=== PATIENT | female | born 2000 | race Two or more races ===

== ENCOUNTER 2023-08-10 18:41 | Emergency (ER) | payer MEDICAID, OTHER ==
[~2023-08-10] VITALS: Ht 160 cm; Wt 93.0 kg
[2023-08-10 20:13] LABS: Basophils # (auto) 0 10 ^3/uL (0-0.2); Basophils % (auto) 0.3 % (0.0-2.0); Eosinophils # (auto) 0.1 10 ^3/uL (0-0.8); Eosinophils % (auto) 1.1 % (0.0-7.0); Hemoglobin 13.3 g/dL (12.2-16.2); Lymphocytes % (auto) 26.6 % (10.0-50.0); Mean Corpuscular Hemoglobin 27.8 pg (28.0-32.0); Mean Corpuscular Hgb Conc. 33.2 g/dL (32.0-36.0); Mean Corpuscular Volume 83.8 fL (80.0-100.0); Monocytes # (auto) 0.8 10 ^3/uL (0-1.3); Monocytes % (auto) 6.8 % (0.0-12.0); Neutrophils # (auto) 7.4 10 ^3/uL (1.6-8.6); Neutrophils % (auto) 65.2 % (37.0-80.0); Red Blood Cells 4.77 10^6/uL (4.0-5.20); Red Cell Distribution Width 13.5 % (11.8-14.3); White Blood Cell 11.3 10^3/uL (4.4-10.8)
[2023-08-10 20:36] LABS: Alanine Aminotransferase 23 U/L (7-40); Albumin 4.5 g/dL (3.2-4.8); Alkaline Phosphatase 97 U/L (46-116); Anion Gap 6 (5-15); Aspartate Aminotransferase 16 U/L (13-40); BUN/Creatinine Ratio 11.1 (10.0-20.0); Bilirubin, Total 0.4 mg/dL (0.2-1.0); Blood Urea Nitrogen 7 mg/dL (9-23); Calcium 9.7 mg/dL (8.7-10.4); Carbon Dioxide 26 mmol/L (20-30); Chloride 104 mmol/L (98-107); Glucose 87 mg/dL (74-106); Sodium 136 mmol/L (136-145); Total Protein 7.7 g/dL (5.7-8.2)
[2023-08-10 22:44] LABS: Urine Bacteria NONE SEEN /hpf (None Seen); Urine Blood Negative /uL (Negative); Urine Clarity Clear (Clear); Urine Color Yellow (Yellow); Urine Mucus FEW (None Seen); Urine Protein, UAD TRACE (Negative); Urine Specific Gravity 1.026 (1.001-1.035); Urine Urobilinogen Normal (Negative); Urine WBC 1 /hpf (0 - 5)
[2023-08-10 23:46] VITALS: BP 129/78; PULSE 78; RESP 18; TEMP 98; O2SAT 98
== END 2023-08-10 23:46 | disposition home or self-care (01) ==
LOC: ER 18:41
DX: O26.891 Other specified pregnancy related conditions, first trimester (principal); R10.2 Pelvic and perineal pain; Z3A.01 Less than 8 weeks gestation of pregnancy; V43.52XA Car driver injured in collision with other type car in traffic accident, initial encounter; Y93.89 Activity, other specified; Y92.410 Unspecified street and highway as the place of occurrence of the external cause; Y99.8 Other external cause status
CPT/HCPCS: 36415; 76801; 76817; 80053; 81001; 84702; 85025

== ENCOUNTER 2023-09-10 10:31 | Emergency (ER) | payer MEDICAID, OTHER ==
[~2023-09-10] VITALS: Ht 162.6 cm; Wt 93.2 kg
[2023-09-10 11:46] LABS: Basophils # (auto) 0 10 ^3/uL (0-0.2); Basophils % (auto) 0.5 % (0.0-2.0); Eosinophils # (auto) 0.1 10 ^3/uL (0-0.8); Eosinophils % (auto) 0.6 % (0.0-7.0); Hematocrit 39.2 % (36.0-46.0); Hemoglobin 13.3 g/dL (12.2-16.2); Lymphocytes % (auto) 20.8 % (10.0-50.0); Mean Corpuscular Hemoglobin 28.5 pg (28.0-32.0); Mean Corpuscular Hgb Conc. 33.9 g/dL (32.0-36.0); Mean Corpuscular Volume 83.9 fL (80.0-100.0); Monocytes # (auto) 0.5 10 ^3/uL (0-1.3); Monocytes % (auto) 5.5 % (0.0-12.0); Neutrophils % (auto) 72.6 % (37.0-80.0); Nucleated Red Blood Cells % 0.1 %; Red Blood Cells 4.67 10^6/uL (4.0-5.20); White Blood Cell 9.6 10^3/uL (4.4-10.8)
[2023-09-10 15:38] LABS: Urine Bacteria NONE SEEN /hpf (None Seen); Urine Blood TRACE /uL (Negative); Urine Clarity Clear (Clear); Urine Color Yellow (Yellow); Urine Protein, UAD Negative (Negative); Urine Specific Gravity 1.019 (1.001-1.035); Urine Urobilinogen Normal (Negative); Urine WBC 1 /hpf (0 - 5); Urine pH 6.5 (5.0-8.0)
[2023-09-10 16:17] VITALS: BP 125/89; PULSE 77; RESP 16; TEMP 98.1; O2SAT 99
== END 2023-09-10 16:19 | disposition home or self-care (01) ==
LOC: ER 10:31
DX: O02.1 Missed abortion (principal); R10.2 Pelvic and perineal pain
CPT/HCPCS: 36415; 76801; 76817; 81001; 84702; 85025

== ENCOUNTER 2024-09-02 13:46 | Emergency (ER) | payer MEDICAID ==
[~2024-09-02] VITALS: Ht 160 cm; Wt 101.1 kg
[2024-09-02 13:57] VITALS: BP 118/74; PULSE 85; RESP 18; O2SAT 96
--- NOTE | 2024-09-02 14:06 | ED.PDOC ---
Altered Mental Status Chief Complaint: Abdominal Pain HPI Comments 24 y.o female presents to the ED for a chief complaint of abdominal pain that started today. Patient describes pain as a pressure like sensation that is diffuse throughout abdomen, specifically in the upper region. Patient is 30 weeks and denies complications throughout her . [employer] history of with one miscarriage one year ago. Patient is on prenatals, denies any med ical, surgical history or allergies. No vaginal bleeding, discharge, fever or chills reported. Patient is cleared from the ED. Physical Exam Exam Comments Well-appearing, in no distress Chest respirations unlabored Abdomen gravid, no tenderness to percussion or palpation. Extremities no edema Neuro alert, oriented x4, ambulatory without difficulty X-Ray, Labs, Meds, VS Vitals are unremarkable Attestation Rapid evaluation performed. Patient appears stable for transfer to and D for further evaluation. I personally scribed for PHILLIP ARELLANO MD ([email or web address]) on 09/02/24 at 14:06. Electronically submitted by Mey James ([facility]). PHILLIP ARELLANO MD Sep 02, 2024 14:06
== END 2024-09-02 14:04 | disposition short-term general hospital (02) ==
LOC: ER 13:46
DX: O26.893 Other specified pregnancy related conditions, third trimester (principal); R10.84 Generalized abdominal pain; Z3A.30 30 weeks gestation of pregnancy

== ENCOUNTER 2024-09-02 14:12 | Observation (INO) | payer MEDICAID | END 2024-09-02 15:29 | disposition home or self-care (01) | LOC: LDRP 14:12 | PROVIDERS: ADMIT Obstetrics & Gynecology; ATTEND Obstetrics & Gynecology | DX: O26.893 Other specified pregnancy related conditions, third trimester (principal); R10.9 Unspecified abdominal pain; Z3A.29 29 weeks gestation of pregnancy; Z79.899 Other long term (current) drug therapy | CPT/HCPCS: 59025; 76705; 76815; 81002; 94760; G0378 ==